=== PATIENT | female | born 1935 | race Caucasian/White ===

== ENCOUNTER 2017-03-13 06:21 | Inpatient (IN) | payer OTHER ==
[~2017-03-13] VITALS: Ht 160 cm; Wt 185.0 kg
[2017-03-13] MEDS ORDERED: ACID REDUCER 1150 MG (06:47)
[2017-03-13] MEDS ORDERED: CLOPIDOGREL BIS75 MG (06:48)
[2017-03-13] MEDS ORDERED: PROTONIX40 M1 (06:48)
[2017-03-13] MEDS ORDERED: ATORVASTATIN CA10 MG (06:48)
[2017-03-13] MEDS ORDERED: LEVOTHYROXINE SO1 GM (06:51)
[2017-03-13] MEDS ORDERED: LASIX20 MG (06:51)
[2017-03-13] MEDS ORDERED: MAXIMUM D310000 UNIT (06:52)
[2017-03-13] MEDS ORDERED: DIOVAN320 MG (06:52)
[2017-03-13] MEDS ORDERED: WELLBUTRIN SR150 MG (06:52)
[2017-03-13] MEDS ORDERED: PNEU16DI2 ×2 (06:53→06:55)
[2017-03-13] MEDS ORDERED: ATIVAN1 M1 (06:53)
[2017-03-13] MEDS ORDERED: FENOFIBRATE54 MG (06:54)
[2017-03-13] MEDS ORDERED: PROCRIT10000 UNIT (06:54)
[2017-03-13] MEDS ORDERED: CELEBREX200MG (06:54)
[2017-04-08] MEDS ORDERED: AMLODIPINE BESYL5 MG PO (14:50)
[2017-04-08] MEDS ORDERED: LOVENOX100 MG/1 M SUBCUTANEO (14:50)
[2017-04-08] MEDS ORDERED: BUPROPION HCL150 M1 PO (14:50)
== END 2017-04-08 18:03 | DRG 330 ==
LOC: ER 06:21 → O/R 17:20 → MEDJ 17:20 → SURG 17:20 → MEDI 17:20 → MEDJ 03-16 14:10 → O/R 03-19 14:25 → ICU 03-20 20:34 → SURH 03-23 19:46 → MEDI 03-23 19:46 → SURH 03-23 19:46 → SURG 04-02 15:42
PROVIDERS: Surgery
PROC: BW21Y0Z Computerized Tomography (CT Scan) of Abdomen and Pelvis using Other Contrast, Unenhanced and Enhanced (ICD-10-PCS; 2017-03-13)
PROC: 30233N1 Transfusion of Nonautologous Red Blood Cells into Peripheral Vein, Percutaneous Approach (ICD-10-PCS; 2017-03-14)
PROC: 3E0336Z Introduction of Nutritional Substance into Peripheral Vein, Percutaneous Approach (ICD-10-PCS; 2017-03-15)
PROC: B246ZZZ Ultrasonography of Right and Left Heart (ICD-10-PCS; 2017-03-16)
PROC: 4A12X4Z Monitoring of Cardiac Electrical Activity, External Approach (ICD-10-PCS; 2017-03-16)
PROC: 0DBK8ZX Excision of Ascending Colon, Via Natural or Artificial Opening Endoscopic, Diagnostic (ICD-10-PCS; 2017-03-18)
PROC: 0DTK4ZZ Resection of Ascending Colon, Percutaneous Endoscopic Approach (ICD-10-PCS; 2017-03-19)
PROC: 07TC4ZZ Resection of Pelvis Lymphatic, Percutaneous Endoscopic Approach (ICD-10-PCS; 2017-03-19)
PROC: 0WQF4ZZ Repair Abdominal Wall, Percutaneous Endoscopic Approach (ICD-10-PCS; principal; 2017-03-19 09:00)
PROC: 02HV33Z Insertion of Infusion Device into Superior Vena Cava, Percutaneous Approach (ICD-10-PCS; 2017-03-20)
PROC: 4A12X4Z Monitoring of Cardiac Electrical Activity, External Approach (ICD-10-PCS; 2017-03-23)
PROC: 3E0F7GC Introduction of Other Therapeutic Substance into Respiratory Tract, Via Natural or Artificial Opening (ICD-10-PCS; 2017-03-25)
PROC: B54CZZZ Ultrasonography of Left Lower Extremity Veins (ICD-10-PCS; 2017-03-28)
PROC: 0DJ08ZZ Inspection of Upper Intestinal Tract, Via Natural or Artificial Opening Endoscopic (ICD-10-PCS; 2017-04-01)
PROC: BW21Y0Z Computerized Tomography (CT Scan) of Abdomen and Pelvis using Other Contrast, Unenhanced and Enhanced (ICD-10-PCS; 2017-04-03)
PROC: B54DZZZ Ultrasonography of Bilateral Lower Extremity Veins (ICD-10-PCS; 2017-04-05)
DX: C18.2 Malignant neoplasm of ascending colon (principal); N17.8 Other acute kidney failure; N39.0 Urinary tract infection, site not specified; C77.5 Secondary and unspecified malignant neoplasm of intrapelvic lymph nodes; K92.2 Gastrointestinal hemorrhage, unspecified; K43.6 Other and unspecified ventral hernia with obstruction, without gangrene; L76.32 Postprocedural hematoma of skin and subcutaneous tissue following other procedure; J90 Pleural effusion, not elsewhere classified; I82.431 Acute embolism and thrombosis of right popliteal vein; I82.441 Acute embolism and thrombosis of right tibial vein; I12.9 Hypertensive chronic kidney disease with stage 1 through stage 4 chronic kidney disease, or unspecified chronic kidney disease; N18.1 Chronic kidney disease, stage 1; E03.8 Other specified hypothyroidism; K21.9 Gastro-esophageal reflux disease without esophagitis; E78.4 Other hyperlipidemia; D63.1 Anemia in chronic kidney disease; R63.4 Abnormal weight loss; E86.0 Dehydration; D50.0 Iron deficiency anemia secondary to blood loss (chronic); R60.1 Generalized edema; K29.00 Acute gastritis without bleeding; K44.9 Diaphragmatic hernia without obstruction or gangrene; R13.14 Dysphagia, pharyngoesophageal phase; E87.6 Hypokalemia; I49.8 Other specified cardiac arrhythmias

== ENCOUNTER 2017-04-20 21:59 | Inpatient (IN) | payer OTHER ==
[~2017-04-20] VITALS: Ht 160 cm; Wt 81.6 kg
[~2017-04-20 21:59] MED LIST: ACID REDUCER 1150 MG; AMLODIPINE BESYL5 MG PO; ATIVAN1 M1; ATORVASTATIN CA10 MG; BUPROPION HCL150 M1 PO; CELEBREX200MG; CLOPIDOGREL BIS75 MG; DIOVAN320 MG; FENOFIBRATE54 MG; LASIX20 MG; LEVOTHYROXINE SO1 GM; LOVENOX100 MG/1 M SUBCUTANEO; MAXIMUM D310000 UNIT; PNEU16DI2; PROCRIT10000 UNIT; PROTONIX40 M1; WELLBUTRIN SR150 MG
== END 2017-04-22 10:28 | disposition expired | DRG 871 ==
LOC: ER 21:59 → ICU-2 04-21 11:25
PROC: 5A1945Z Respiratory Ventilation, 24-96 Consecutive Hours (ICD-10-PCS; principal; 2017-04-21)
PROC: 0BH17EZ Insertion of Endotracheal Airway into Trachea, Via Natural or Artificial Opening (ICD-10-PCS; 2017-04-21)
PROC: 06HM33Z Insertion of Infusion Device into Right Femoral Vein, Percutaneous Approach (ICD-10-PCS; 2017-04-21)
PROC: 30233N1 Transfusion of Nonautologous Red Blood Cells into Peripheral Vein, Percutaneous Approach (ICD-10-PCS; 2017-04-21)
PROC: 3E0F7GC Introduction of Other Therapeutic Substance into Respiratory Tract, Via Natural or Artificial Opening (ICD-10-PCS; 2017-04-21)
PROC: 4A033R1 Measurement of Arterial Saturation, Peripheral, Percutaneous Approach (ICD-10-PCS; 2017-04-21)
DX: A41.9 Sepsis, unspecified organism (principal); R65.21 Severe sepsis with septic shock; J96.02 Acute respiratory failure with hypercapnia; J96.01 Acute respiratory failure with hypoxia; N17.8 Other acute kidney failure; E87.0 Hyperosmolality and hypernatremia; C18.9 Malignant neoplasm of colon, unspecified; E87.2 Acidosis; I82.4Z1 Acute embolism and thrombosis of unspecified deep veins of right distal lower extremity; K21.9 Gastro-esophageal reflux disease without esophagitis; E78.4 Other hyperlipidemia; E03.8 Other specified hypothyroidism; I12.9 Hypertensive chronic kidney disease with stage 1 through stage 4 chronic kidney disease, or unspecified chronic kidney disease; N18.1 Chronic kidney disease, stage 1; D63.1 Anemia in chronic kidney disease; R13.12 Dysphagia, oropharyngeal phase; R60.1 Generalized edema; B95.61 Methicillin susceptible Staphylococcus aureus infection as the cause of diseases classified elsewhere